=== PATIENT | male | born 1965 | race Caucasian/White ===

== ENCOUNTER 2021-02-27 11:10 | Inpatient (IN) | payer OTHER ==
[~2021-02-27] VITALS: Ht 195.6 cm; Wt 86.2 kg
[2021-02-27 12:48] LABS: HEMOGLOBIN 15.8 gm/dl (14.0-17.5); RED BLOOD COUNT 5.09 M/UL (4.20-5.50); WHITE BLOOD COUNT 6.5 K/UL (4.5-11.0)
[2021-02-27] MEDS ORDERED: TADALAFIL5 MG PO (14:01)
[2021-02-28 02:24] LABS: HEMOGLOBIN 15.2 gm/dl (14.0-17.5); RED BLOOD COUNT 4.81 M/UL (4.20-5.50); WHITE BLOOD COUNT 7.2 K/UL (4.5-11.0)
[2021-03-01 05:02] LABS: HEMOGLOBIN 14.7 gm/dl (14.0-17.5); RED BLOOD COUNT 4.68 M/UL (4.20-5.50); WHITE BLOOD COUNT 5.7 K/UL (4.5-11.0)
[2021-03-01 09:13] LABS: CREATININE, URINE 29.5 mg/dL (Not Estab.)
[2021-03-01 12:13] LABS: HBSAG SCREEN Negative (Negative); HEP A AB, IGM Negative (Negative); HEP B CORE AB, IGM Negative (Negative); HEP C VIRUS AB 0.1 (0.0-0.9)
[2021-03-02 03:34] LABS: HEMOGLOBIN 14.8 gm/dl (14.0-17.5); RED BLOOD COUNT 4.76 M/UL (4.20-5.50); WHITE BLOOD COUNT 6.1 K/UL (4.5-11.0)
[2021-03-02 15:13] LABS: A/G RATIO 1.5 (0.7-1.7); ALBUMIN 2.9 g/dL (2.9-4.4); ALPHA-1-GLOBULIN 0.2 g/dL (0.0-0.4); ALPHA-2-GLOBULIN 0.5 g/dL (0.4-1.0); BETA GLOBULIN 0.7 g/dL (0.7-1.3); GAMMA GLOBULIN 0.5 g/dL (0.4-1.8); IMMUNOGLOBULIN A, QN, SERUM 201 mg/dL (90-386); IMMUNOGLOBULIN G, QN, SERUM 638 mg/dL (603-1613); IMMUNOGLOBULIN M, QN, SERUM 42 mg/dL (20-172); M-SPIKE 0.1 g/dL (Not Observed); PROTEIN, TOTAL, SERUM 4.9 g/dL (6.0-8.5)
[2021-03-03 07:36] LABS: RED BLOOD COUNT 4.9 M/UL (4.20-5.50); WHITE BLOOD COUNT 5.8 K/UL (4.5-11.0)
[2021-03-04 05:29] LABS: HEMOGLOBIN 14.9 gm/dl (14.0-17.5); RED BLOOD COUNT 4.88 M/UL (4.20-5.50)
[2021-03-05 08:12] LABS: HEMOGLOBIN 14.8 gm/dl (14.0-17.5); RED BLOOD COUNT 4.72 M/UL (4.20-5.50)
[2021-03-06 04:25] LABS: HEMOGLOBIN 14.7 gm/dl (14.0-17.5); RED BLOOD COUNT 4.85 M/UL (4.20-5.50)
--- NOTE | 2021-03-06 12:40 | NUR ---
PATIENT RETURNED FROM HEART CATHETERIZATION PERFORMED IN [employer]. TR BAND TO RIGHT WRIST WITH BLOODY DISCHARGE NOTED BENEATH SITE FROM ATTEMPTS BY [employer] TO APPLY ADEQUATE PRESSURE PER TR BAND. RN TO RELEASE AIR PER TR BAND PROTOCAL SHEET. PATIENT DENIES CHEST PAIN AND DISCOMFORT. SURGICAL VITALS PERFORMED PER ORDER. BED LOCKED AND LOW. CALL LIGHT WITHIN REACH.
--- NOTE | 2021-03-06 14:21 | NUR ---
rn called dr. davis to ask if left arm could be used for postoperative blood pressures, md verbalized that rn could use that site.
--- NOTE | 2021-03-06 15:29 | NUR ---
TR BAND REMOVED PER ORDER, COBAND IN PLACE WITH GAUZE IN PLACE. PATIENT INSTRUCTED TO INFORM RN IF BLEEDING, NUMBNESS, OR OTHER DISCOMFORT OCCURS. PATIENT VERBALIZED UNDERSTANDING.
[2021-03-07 07:17] LABS: HEMOGLOBIN 15.7 gm/dl (14.0-17.5); RED BLOOD COUNT 5.14 M/UL (4.20-5.50); WHITE BLOOD COUNT 6.5 K/UL (4.5-11.0)
[2021-03-08] MEDS ORDERED: BUMETANIDE2 MG PO (17:41)
[2021-03-08] MEDS ORDERED: ASPIRIN EC81 MG PO (17:41)
[2021-03-08] MEDS ORDERED: LISINOPRIL5 MG PO (17:41)
[2021-03-08] MEDS ORDERED: CARVEDILOL12.5 MG PO (17:41)
--- NOTE | 2021-03-08 18:30 | NUR ---
PT LEFT AMA REFUSING TO STAY DR RICO AND DR EMERSON WAS HERE AND SPOKE TO THE PATIENT , SCRIPTS GIVEN AND DR OFFICE NUMBER TO MAKE APPT FOR FOLLOW UP , [facility] HAS HIS NUMBER AND WILL CALL HIM WHEN [facility] IS APPROVED , HE WILL FOLLOW UP WITH [facility] ALSO,
== END 2021-03-08 18:29 | disposition left against medical advice (07) | DRG 673 ==
LOC: ER1 11:10 → CDU 15:10 → MED SURG 4 15:10
PROVIDERS: Internal Medicine; Internal Medicine Nephrology; Physician Assistant; ADMIT Internal Medicine
PROC: B24BZZZ Ultrasonography of Heart with Aorta (ICD-10-PCS; 2021-02-28)
PROC: 0WHG43Z Insertion of Infusion Device into Peritoneal Cavity, Percutaneous Endoscopic Approach (ICD-10-PCS; 2021-03-02)
PROC: 3E1M39Z Irrigation of Peritoneal Cavity using Dialysate, Percutaneous Approach (ICD-10-PCS; 2021-03-02)
PROC: 4A023N7 Measurement of Cardiac Sampling and Pressure, Left Heart, Percutaneous Approach (ICD-10-PCS; principal; 2021-03-06)
PROC: B2111ZZ Fluoroscopy of Multiple Coronary Arteries using Low Osmolar Contrast (ICD-10-PCS; 2021-03-06)
DX: N17.9 Acute kidney failure, unspecified (principal); J96.01 Acute respiratory failure with hypoxia; I50.23 Acute on chronic systolic (congestive) heart failure; I13.2 Hypertensive heart and chronic kidney disease with heart failure and with stage 5 chronic kidney disease, or end stage renal disease; Q61.3 Polycystic kidney, unspecified; I47.1 Supraventricular tachycardia; I42.8 Other cardiomyopathies; N18.6 End stage renal disease; Z20.822 Contact with and (suspected) exposure to COVID-19; E11.22 Type 2 diabetes mellitus with diabetic chronic kidney disease; D69.6 Thrombocytopenia, unspecified; N20.0 Calculus of kidney; I08.1 Rheumatic disorders of both mitral and tricuspid valves; K21.9 Gastro-esophageal reflux disease without esophagitis; I27.20 Pulmonary hypertension, unspecified; Z85.118 Personal history of other malignant neoplasm of bronchus and lung; Z87.891 Personal history of nicotine dependence; Z79.4 Long term (current) use of insulin
CPT/HCPCS: ECHO; 36415; 36600; 71045; 71046; 80048; 80053; 80074; 81001; 82043; 82550; 82553; 82570; 82784; 82803; 83036; 83735; 83880; 83970; 84100; 84155; 84156; 84165; 84439; 84443; 84484; 85025; 86334; 87086; 90935; 93005; 93306; 96374; 96375; 99152; 99153; 99285; C1750; C1769; C1887; C1894; J0360; J0690; J1100; J1642; J1644; J2001; J2250; J2370; J2405; J2704; J2710; J3010; J7030; J7040; J7120; Q9965; U0002